=== PATIENT | female | born 1940 | race African-American/Black ===

== ENCOUNTER 2018-01-27 17:29 | Emergency (ER) | payer OTHER, MEDICAID ==
[~2018-01-27] VITALS: Ht 162.6 cm; Wt 60.0 kg
[~2018-01-27 17:29] MED LIST: AMLO5TAB88; PRAV20TA57
[2018-01-27] MEDS ORDERED: SODIUM CHLORIDE 0.9% 1,000 ML IV ONE (17:53)
[2018-01-27 18:13] LABS: BASOPHILS % 0.8 % (0.0-2.0); EOSINOPHILS % 3.6 % (0.0-5.0); HEMATOCRIT. 42.4 % (36.0-48.0); HEMOGLOBIN. 13.8 g/dL (12.0-16.0); LYMPHOCYTES % 39.8 % (20.0-50.0); MEAN CORPUSCULAR HEMOGLOBIN 28.4 pg (28.0-32.0); MEAN CORPUSCULAR VOLUME 87.4 fL (81.0-99.0); MEAN PLATELET VOLUME 9.2 fl (7.4-10.4); MONOCYTES % 13.9 % (2.0-8.0); NEUTROPHILS % 41.9 % (40.0-76.0); PLATELET 185 x1000/uL (130-400); RED BLOOD CELL COUNT 4.85 mill/uL (4.2-5.4); RED CELL DISTRIBUTION WIDTH 15.3 % (11.6-14.6)
[2018-01-27 18:16] LABS: CHLORIDE 104 mEq/L (98-107)
[2018-01-27 18:33] LABS: CLARITY URINE CLEAR (CLEAR); COLOR URINE YELLOW (YELLOW); KETONES URINE NEGATIVE (NEGATIVE); LEUKOCYTE ESTERASE URINE NEGATIVE (NEGATIVE); NITRITE URINE NEGATIVE (NEGATIVE); OCCULT BLOOD URINE NEGATIVE (NEGATIVE); PH URINE 6.5 (4.5-8.0); PROTEIN URINE NEGATIVE (NEGATIVE); SPECIFIC GRAVITY URINE 1.002 (1.005-1.030); UROBILINOGEN URINE 0.2 E.U./dL (0.2-1.0)
[2018-01-27 20:07] VITALS: BP 124/75
== END 2018-01-27 20:08 | disposition home or self-care (01) ==
LOC: ER 17:45
DX: I10 Essential (primary) hypertension (principal); R42 Dizziness and giddiness; E78.00 Pure hypercholesterolemia, unspecified; R94.31 Abnormal electrocardiogram [ECG] [EKG]
CPT/HCPCS: 36415; 70450; 71045; 80053; 81003; 85025; 93005; 96360; 99285; J7030

== ENCOUNTER 2018-02-28 04:02 | Emergency (ER) | payer OTHER, MEDICAID ==
[~2018-02-28] VITALS: Ht 167.6 cm; Wt 82.0 kg
[2018-02-28] MEDS ORDERED: SODIUM CHLORIDE 0.9% 1,000 ML IV ONE (06:21)
[2018-02-28] MEDS ORDERED: FAMOTIDINE 20MG/2ML VIAL IV ONE (06:30)
[2018-02-28 06:37] LABS: BASOPHILS % 0.7 % (0.0-2.0); EOSINOPHILS % 5.1 % (0.0-5.0); HEMATOCRIT. 43.9 % (36.0-48.0); HEMOGLOBIN. 14.4 g/dL (12.0-16.0); LYMPHOCYTES % 34.1 % (20.0-50.0); MEAN CORPUSCULAR HEMOGLOBIN 28.6 pg (28.0-32.0); MEAN CORPUSCULAR VOLUME 87.3 fL (81.0-99.0); MEAN PLATELET VOLUME 10.5 fl (7.4-10.4); MONOCYTES % 12.7 % (2.0-8.0); NEUTROPHILS % 47.4 % (40.0-76.0); PLATELET 178 x1000/uL (130-400); RED BLOOD CELL COUNT 5.03 mill/uL (4.2-5.4); RED CELL DISTRIBUTION WIDTH 15.1 % (11.6-14.6)
[2018-02-28 06:43] LABS: CHLORIDE 103 mEq/L (98-107)
[2018-02-28 08:30] LABS: CLARITY URINE CLEAR (CLEAR); COLOR URINE YELLOW (YELLOW); KETONES URINE NEGATIVE (NEGATIVE); LEUKOCYTE ESTERASE URINE NEGATIVE (NEGATIVE); NITRITE URINE NEGATIVE (NEGATIVE); OCCULT BLOOD URINE NEGATIVE (NEGATIVE); PH URINE 8.5 (4.5-8.0); PROTEIN URINE NEGATIVE (NEGATIVE); SPECIFIC GRAVITY URINE 1.006 (1.005-1.030); UROBILINOGEN URINE 0.2 E.U./dL (0.2-1.0)
[2018-02-28 11:07] VITALS: BP 142/76
== END 2018-02-28 11:39 | disposition home or self-care (01) ==
LOC: ER 06:00
DX: R10.13 Epigastric pain (principal); E11.9 Type 2 diabetes mellitus without complications; I10 Essential (primary) hypertension
CPT/HCPCS: 36415; 76700; 80053; 81003; 83690; 85025; 93005; 96374; 99285; J3490; J7030

== ENCOUNTER 2018-07-01 10:52 | Emergency (ER) | payer OTHER, MEDICAID ==
[~2018-07-01] VITALS: Ht 297.2 cm; Wt 82.0 kg
[2018-07-01 11:12] VITALS: BP 129/85
== END 2018-07-01 16:07 | disposition home or self-care (01) ==
LOC: ER 10:52
DX: M21.611 Bunion of right foot (principal); E11.9 Type 2 diabetes mellitus without complications; I11.9 Hypertensive heart disease without heart failure; Z79.899 Other long term (current) drug therapy
CPT/HCPCS: 99282

== ENCOUNTER 2018-10-24 22:08 | Emergency (ER) | payer OTHER, MEDICAID ==
[~2018-10-24] VITALS: Ht 165.1 cm; Wt 70.0 kg
[2018-10-24 23:03] LABS: CLARITY URINE CLEAR (CLEAR); COLOR URINE YELLOW (YELLOW); KETONES URINE NEGATIVE (NEGATIVE); LEUKOCYTE ESTERASE URINE NEGATIVE (NEGATIVE); NITRITE URINE NEGATIVE (NEGATIVE); OCCULT BLOOD URINE NEGATIVE (NEGATIVE); PH URINE 6.5 (4.5-8.0); PROTEIN URINE NEGATIVE (NEGATIVE); SPECIFIC GRAVITY URINE 1.001 (1.005-1.030); UROBILINOGEN URINE 0.2 E.U./dL (0.2-1.0)
[2018-10-24 23:05] LABS: BASOPHILS % 0.7 % (0.0-2.0); HEMATOCRIT. 42.1 % (36.0-48.0); HEMOGLOBIN. 13.8 g/dL (12.0-16.0); LYMPHOCYTES % 41.7 % (20.0-50.0); MEAN CORPUSCULAR HEMOGLOBIN 29.1 pg (28.0-32.0); MEAN CORPUSCULAR VOLUME 88.6 fL (81.0-99.0); MEAN PLATELET VOLUME 9.1 fl (7.4-10.4); MONOCYTES % 12.3 % (2.0-8.0); NEUTROPHILS % 42.3 % (40.0-76.0); PLATELET 166 x1000/uL (130-400); RED BLOOD CELL COUNT 4.76 mill/uL (4.2-5.4)
[2018-10-24 23:08] LABS: CHLORIDE 102 mEq/L (98-107)
[2018-10-24 23:10] LABS: INR 1.1; PROTHROMBIN TIME 11.1 sec (9.1-11.1)
[2018-10-25] MEDS ORDERED: ASPIRIN 81MG TABLET PO ONE (01:15)
[2018-10-25] MEDS ORDERED: FUROSEMIDE 20MG TABLET PO ONE (01:15)
[2018-10-25 03:06] VITALS: BP 133/89
== END 2018-10-25 03:30 | disposition short-term general hospital (02) ==
LOC: ER 22:08 → ENRESERV 10-25 08:00 → CANRESERV 10-25 08:00 → CANBEDREQ 10-25 09:09
DX: I11.0 Hypertensive heart disease with heart failure (principal); I50.9 Heart failure, unspecified; R55 Syncope and collapse; R42 Dizziness and giddiness; G40.909 Epilepsy, unspecified, not intractable, without status epilepticus; E11.9 Type 2 diabetes mellitus without complications; Z88.0 Allergy status to penicillin
CPT/HCPCS: 36415; 71045; 83880; 84484; 93005; 99285

== ENCOUNTER 2018-12-21 12:46 | Emergency (ER) | payer OTHER, MEDICAID ==
[~2018-12-21] VITALS: Ht 165.1 cm; Wt 60.0 kg
[2018-12-21] MEDS ORDERED: SODIUM CHLORIDE 0.9% 1,000 ML IV ONE (14:10)
[2018-12-21] MEDS ORDERED: ONDANSETRON HCL 4MG/2ML INJ IV STA (14:10)
[2018-12-21 14:33] LABS: BASOPHILS % 1.5 % (0.0-2.0); EOSINOPHILS % 2.2 % (0.0-5.0); HEMATOCRIT. 44.5 % (36.0-48.0); HEMOGLOBIN. 14.6 g/dL (12.0-16.0); LYMPHOCYTES % 43.7 % (20.0-50.0); MEAN CORPUSCULAR HEMOGLOBIN 28.8 pg (28.0-32.0); MEAN PLATELET VOLUME 9.4 fl (7.4-10.4); MONOCYTES % 9.5 % (2.0-8.0); NEUTROPHILS % 43.1 % (40.0-76.0); PLATELET 184 x1000/uL (130-400); RED BLOOD CELL COUNT 5.06 mill/uL (4.2-5.4); RED CELL DISTRIBUTION WIDTH 14.9 % (11.6-14.6)
[2018-12-21 14:36] LABS: CHLORIDE 103 mEq/L (98-107)
[2018-12-21 16:14] LABS: CLARITY URINE CLEAR (CLEAR); COLOR URINE YELLOW (YELLOW); KETONES URINE NEGATIVE (NEGATIVE); LEUKOCYTE ESTERASE URINE TRACE (NEGATIVE); NITRITE URINE NEGATIVE (NEGATIVE); OCCULT BLOOD URINE NEGATIVE (NEGATIVE); PROTEIN URINE NEGATIVE (NEGATIVE); SPECIFIC GRAVITY URINE 1.002 (1.005-1.030); UROBILINOGEN URINE 0.2 E.U./dL (0.2-1.0)
[2018-12-21 17:40] VITALS: BP 148/73
== END 2018-12-21 18:33 | disposition home or self-care (01) ==
LOC: ER 12:58
DX: R55 Syncope and collapse (principal); R53.1 Weakness; E11.9 Type 2 diabetes mellitus without complications; E78.00 Pure hypercholesterolemia, unspecified; I10 Essential (primary) hypertension; Z88.0 Allergy status to penicillin
CPT/HCPCS: 36415; 71045; 80053; 81003; 82962; 83605; 83880; 84484; 85025; 93005; 96361; 96374; 99284; J2405; J7030

== ENCOUNTER 2019-08-11 14:30 | Emergency (ER) | payer OTHER, MEDICAID ==
[~2019-08-11] VITALS: Ht 170.2 cm; Wt 65.0 kg
[2019-08-11 14:52] VITALS: BP 129/61
[2019-08-11] MEDS ORDERED: ACETAMINOPHEN 325MG TABLET PO ONE (15:45)
== END 2019-08-11 16:03 | disposition home or self-care (01) ==
LOC: ER 14:30
DX: M79.671 Pain in right foot (principal); E11.9 Type 2 diabetes mellitus without complications; E78.00 Pure hypercholesterolemia, unspecified; I10 Essential (primary) hypertension; Z88.0 Allergy status to penicillin
CPT/HCPCS: 99283

== ENCOUNTER 2020-11-18 10:31 | Inpatient (IN) | payer OTHER, MEDICAID ==
[~2020-11-18] VITALS: Ht 167.6 cm; Wt 72.6 kg
[~2020-11-18 10:31] MED LIST changes: -AMLO5TAB88; +AMLO5TAB88 PO; -PRAV20TA57; +PRAV20TA57 PO
[2020-11-18] MEDS ORDERED: SODIUM CHLORIDE 0.9% 500 ML IV ONE (11:15)
[2020-11-18 11:42] LABS: BASOPHILS % 0.8 % (0.0-2.0); EOSINOPHILS % 4.3 % (0.0-5.0); HEMATOCRIT. 46.5 % (36.0-48.0); HEMOGLOBIN. 14.9 g/dL (12.0-16.0); LYMPHOCYTES % 41.2 % (20.0-50.0); MEAN CORPUSCULAR HEMOGLOBIN 29.2 pg (28.0-32.0); MEAN CORPUSCULAR VOLUME 91.4 fL (81.0-99.0); MONOCYTES % 12.8 % (2.0-8.0); NEUTROPHILS % 40.9 % (40.0-76.0); PLATELET 201 x1000/uL (130-400); RED BLOOD CELL COUNT 5.09 mill/uL (4.2-5.4); RED CELL DISTRIBUTION WIDTH 16.7 % (11.6-14.6)
[2020-11-18 13:05] LABS: CHLORIDE 108 mEq/L (98-107)
[2020-11-18 13:13] LABS: C REACTIVE PROTEIN QUANT 2.6 mg/L (0.0-3.0)
[2020-11-18] MEDS ORDERED: CEFTRIAXONE 1 G PREMIX 50 ML IV NR (15:00)
[2020-11-18 15:01] LABS: INR 1.1; PROTHROMBIN TIME 11.5 sec (9.6-11.0)
[2020-11-18 21:00] VITALS: BP 132/88
[2020-11-18] MEDS ORDERED: FURO-152 PO (21:58)
[2020-11-18] MEDS ORDERED: HYDROCODONE/ACETAMINOPHEN 5/325MG TABLET PO PRN (23:00)
[2020-11-18] MEDS ORDERED: ACETAMINOPHEN 325MG TABLET PO PRN (23:00)
[2020-11-18] MEDS ORDERED: TEMAZEPAM 15MG CAPSULE PO PRN (23:00)
[2020-11-18] MEDS ORDERED: ONDANSETRON HCL 4MG/2ML INJ IV PRN (23:00)
[2020-11-19] VITALS: BP 110/68
[2020-11-19 04:00] VITALS: BP 136/68
[2020-11-19 06:21] LABS: CHLORIDE 110 mEq/L (98-107)
[2020-11-19 06:29] LABS: HDL CHOLESTEROL 75 mg/dL (40-59)
[2020-11-19 06:30] LABS: BASOPHILS % 0.7 % (0.0-2.0); HEMATOCRIT. 44.5 % (36.0-48.0); HEMOGLOBIN. 14.2 g/dL (12.0-16.0); LDL CHOLESTEROL 105 mg/dL (5-100); LYMPHOCYTES % 38.8 % (20.0-50.0); MEAN CORPUSCULAR HEMOGLOBIN 29.1 pg (28.0-32.0); MEAN CORPUSCULAR VOLUME 91.1 fL (81.0-99.0); MEAN PLATELET VOLUME 10.4 fl (7.4-10.4); MONOCYTES % 14.6 % (2.0-8.0); NEUTROPHILS % 40.9 % (40.0-76.0); PLATELET 140 x1000/uL (130-400); RED BLOOD CELL COUNT 4.89 mill/uL (4.2-5.4); RED CELL DISTRIBUTION WIDTH 15.1 % (11.6-14.6)
[2020-11-19 06:42] LABS: T4 FREE 1.21 ng/dL (0.76-1.46)
[2020-11-19 08:00] VITALS: BP 124/70
[2020-11-19] MEDS: FUROSEMIDE 40MG/4ML VIAL IVP SCH (09:38)
[2020-11-19] MEDS: CARVEDILOL 3.125 MG TABLET PO SCH ×2 (09:39→21:36)
[2020-11-19] MEDS: ENOXAPARIN 40MG/0.4ML SYR SUBCUT SCH (09:40)
[2020-11-19 12:00] VITALS: BP 122/85
[2020-11-19] MEDS: ASPIRIN 81MG TABLET PO SCH (13:30)
[2020-11-19] MEDS ORDERED: IPRATROPIUM/ALBUTEROL 0.5-3(2.5)MG/3ML NEB HHN PRN (13:30)
[2020-11-19] MEDS ORDERED: DIPHENHYDRAMINE 50MG/ML VIAL IV PRN (13:30)
[2020-11-19] MEDS ORDERED: HYDRALAZINE 20MG/ML VIAL IV PRN (13:30)
[2020-11-19] MEDS ORDERED: BISACODYL 10MG SUPP PR PRN (13:30)
[2020-11-19 16:00] VITALS: BP 124/65
[2020-11-19] MEDS ORDERED: CEFTRIAXONE 1 G PREMIX 50 ML IV SCH (17:00)
[2020-11-19 18:17] LABS: CREATINE KINASE 187 IU/L (26-192)
[2020-11-19 18:18] LABS: CREATINE KINASE MB FRACTION 1.5 ng/mL (0.5-3.6)
[2020-11-19] MEDS: CEFTRIAXONE 1,000 MG in DEXTROSE 5% WATER 50 ML IV SCH (18:54)
[2020-11-19 20:00] VITALS: BP 124/52
[2020-11-19] MEDS ORDERED: FAMOTIDINE 20MG TABLET PO SCH (21:00)
[2020-11-20] VITALS: BP 116/46
[2020-11-20 04:00] VITALS: BP 114/68
[2020-11-20 06:33] LABS: CHLORIDE 107 mEq/L (98-107)
[2020-11-20 06:37] LABS: HEMATOCRIT. 46.2 % (36.0-48.0); HEMOGLOBIN. 14.8 g/dL (12.0-16.0); MEAN CORPUSCULAR VOLUME 90.2 fL (81.0-99.0); MEAN PLATELET VOLUME 10.3 fl (7.4-10.4); PLATELET 147 x1000/uL (130-400); RED BLOOD CELL COUNT 5.12 mill/uL (4.2-5.4); RED CELL DISTRIBUTION WIDTH 15.1 % (11.6-14.6)
[2020-11-20 08:00] VITALS: BP 144/75
[2020-11-20] MEDS: ENOXAPARIN 40MG/0.4ML SYR SUBCUT SCH (09:00)
[2020-11-20] MEDS: FUROSEMIDE 40MG/4ML VIAL IVP SCH ×3 (09:00→17:00)
[2020-11-20] MEDS: CARVEDILOL 3.125 MG TABLET PO SCH (09:14)
[2020-11-20] MEDS: ASPIRIN 81MG TABLET PO SCH (09:15)
[2020-11-20 12:00] VITALS: BP 118/66
[2020-11-20] MEDS ORDERED: LOSARTAN POTASSIUM 25 MG TABLET PO SCH (12:00)
[2020-11-20 12:16] LABS: BG CARBOXYHEMOGLOBIN 0.5 % (0.5-1.5); BG DEOXYHEMOGLOBIN 2.1 % (0.0-5.0); BG HCO3 ACT 24.2 mmol/L (22.0-26.0); BG METHEMOGLOBIN 0.4 % (0.0-1.5); BG OXYGEN SATURATION 97.9 % (92.0-98.5); BG PCO2 34.6 mmHg (35.0-45.0); BG PH 7.463 (7.350-7.450); BG PO2 97.3 mmHg (75.0-100.0); BG SAMPLE SITE RIGHT RADIAL; BG TOTAL HEMOGLOBIN 15.8 g/dL (12.0-18.0); BG VENT MODE ROOM AIR
[2020-11-20 15:09] LABS: PLATELET ESTIMATE NORMAL
[2020-11-20 16:00] VITALS: BP 108/72
[2020-11-20] MEDS: CEFTRIAXONE 1,000 MG in DEXTROSE 5% WATER 50 ML IV SCH (18:00)
[2020-11-21] MEDS ORDERED: DEXT 5%/0.45% NACL 1000ML 1,000 ML IV SCH
[2020-11-21] MEDS ORDERED: CARVEDILOL 6.25 MG TABLET PO SCH (09:00)
== END 2020-11-20 19:50 | disposition left against medical advice (07) | DRG 74 ==
LOC: EDBD 10:31 → ER 10:31 → 6WST 17:52 → ENRESERV 19:57
PROVIDERS: ADMIT Internal Medicine; ATTEND Internal Medicine
DX: G57.91 Unspecified mononeuropathy of right lower limb (principal); L03.115 Cellulitis of right lower limb; I42.0 Dilated cardiomyopathy; I50.20 Unspecified systolic (congestive) heart failure; I11.0 Hypertensive heart disease with heart failure; E78.5 Hyperlipidemia, unspecified; E87.5 Hyperkalemia; M85.80 Other specified disorders of bone density and structure, unspecified site; D72.819 Decreased white blood cell count, unspecified; E78.00 Pure hypercholesterolemia, unspecified; I49.3 Ventricular premature depolarization; I70.0 Atherosclerosis of aorta; M79.671 Pain in right foot; M79.89 Other specified soft tissue disorders; R00.8 Other abnormalities of heart beat; R06.02 Shortness of breath; N28.9 Disorder of kidney and ureter, unspecified; Z53.21 Procedure and treatment not carried out due to patient leaving prior to being seen by health care provider; M79.661 Pain in right lower leg; Z91.14 Patient's other noncompliance with medication regimen; Z79.899 Other long term (current) drug therapy; Z88.8 Allergy status to other drugs, medicaments and biological substances
CPT/HCPCS: 36415; 36600; 71045; 73610; 73700; 80048; 80053; 80061; 82375; 82550; 82553; 82805; 83605; 83880; 84439; 84443; 84484; 85025; 86140; 93005; 93306; 93970; 99285; J0696; J1650; J1940; J7040; J7060

== ENCOUNTER 2021-03-27 10:46 | Inpatient (IN) | payer MEDICARE, MEDICAID ==
[~2021-03-27] VITALS: Ht 165.1 cm; Wt 68.9 kg
[~2021-03-27 10:46] MED LIST changes: +FURO-152 PO
[2021-03-27] MEDS ORDERED: HYDROCODONE/ACETAMINOPHEN 5/325MG TABLET PO ONE (11:30)
[2021-03-27 12:24] LABS: BASOPHILS % 1.3 % (0.0-2.0); EOSINOPHILS % 2.4 % (0.0-5.0); HEMATOCRIT. 41.1 % (36.0-48.0); HEMOGLOBIN. 13.4 g/dL (12.0-16.0); LYMPHOCYTES % 37.7 % (20.0-50.0); MEAN CORPUSCULAR VOLUME 89.2 fL (81.0-99.0); MEAN PLATELET VOLUME 9.3 fl (7.4-10.4); MONOCYTES % 14.6 % (2.0-8.0); PLATELET 176 x1000/uL (130-400); RED BLOOD CELL COUNT 4.61 mill/uL (4.2-5.4)
[2021-03-27 12:35] LABS: CHLORIDE 109 mEq/L (98-107)
[2021-03-27 12:36] LABS: INR 1.1; PARTIAL THROMBOPLASTIN TIME 28.8 sec (23.4-31.0); PROTHROMBIN TIME 11.5 sec (9.6-11.0)
[2021-03-27] MEDS ORDERED: FUROSEMIDE 40MG/4ML VIAL IV ONE (13:30)
[2021-03-27] MEDS ORDERED: ASPIRIN 81MG TABLET PO ONE (13:30)
[2021-03-27] MEDS ORDERED: NITROGLYCERIN OINT 1GM/INCH UDPKT TD ONE (13:30)
[2021-03-27] MEDS ORDERED: MORPHINE SULFATE 2 MG/ML CPJ (NOT FOR IM USE) IV PRN (23:15)
[2021-03-27] MEDS ORDERED: IPRATROPIUM/ALBUTEROL 0.5-3(2.5)MG/3ML NEB HHN PRN (23:15)
[2021-03-27] MEDS ORDERED: HYDROCODONE/ACETAMINOPHEN 5/325MG TABLET PO PRN (23:15)
[2021-03-27] MEDS ORDERED: GUAIFENESIN 200MG/10ML SUGAR FREE UDC PO PRN (23:15)
[2021-03-27] MEDS ORDERED: DOCUSATE SODIUM 100MG CAPSULE PO PRN (23:15)
[2021-03-27] MEDS ORDERED: LORAZEPAM 2MG/ML CPJ IV PRN (23:15)
[2021-03-27] MEDS ORDERED: DIPHENHYDRAMINE 50MG/ML VIAL IV PRN (23:15)
[2021-03-27] MEDS ORDERED: HYDRALAZINE 20MG/ML VIAL IV PRN (23:15)
[2021-03-27] MEDS ORDERED: ACETAMINOPHEN 325MG TABLET PO PRN (23:15)
[2021-03-27] MEDS ORDERED: MAGNESIUM/ALUMINUM HYDROXIDE/SIMETHICONE 30ML UDC PO PRN (23:15)
[2021-03-27] MEDS ORDERED: ONDANSETRON HCL 4MG/2ML INJ IV PRN (23:15)
[2021-03-27] MEDS ORDERED: ENOXAPARIN 40MG/0.4ML SYR SUBCUT SCH (23:15)
[2021-03-27] MEDS ORDERED: CLONIDINE 0.1MG TABLET PO PRN (23:15)
[2021-03-27] MEDS: ENOXAPARIN 30MG/0.3ML SYR SUBCUT SCH (23:46)
[2021-03-28 05:18] LABS: HEMATOCRIT. 43.2 % (36.0-48.0); HEMOGLOBIN. 14.2 g/dL (12.0-16.0); MEAN CORPUSCULAR HEMOGLOBIN 29.1 pg (28.0-32.0); MEAN CORPUSCULAR VOLUME 88.5 fL (81.0-99.0); MEAN PLATELET VOLUME 9.1 fl (7.4-10.4); PLATELET 180 x1000/uL (130-400); RED BLOOD CELL COUNT 4.89 mill/uL (4.2-5.4); RED CELL DISTRIBUTION WIDTH 15.2 % (11.6-14.6)
[2021-03-28 05:24] LABS: CHLORIDE 105 mEq/L (98-107)
[2021-03-28 05:34] LABS: CREATINE KINASE 139 IU/L (26-192)
[2021-03-28 05:36] LABS: CREATINE KINASE MB FRACTION 1.3 ng/mL (0.5-3.6)
[2021-03-28] MEDS: SODIUM CHLORIDE 0.9% INJ 3ML FLUSH IVF SCH ×3 (06:19→22:34)
[2021-03-28 08:40] VITALS: BP 136/74
[2021-03-28 09:00] VITALS: BP 136/74
[2021-03-28] MEDS: LOSARTAN POTASSIUM 25 MG TABLET PO SCH (09:46)
[2021-03-28] MEDS: FUROSEMIDE 40MG/4ML VIAL IV SCH (09:47)
[2021-03-28 10:00] VITALS: BP 121/73
[2021-03-28 11:09] LABS: T4 FREE 1.08 ng/dL (0.76-1.46)
[2021-03-28] MEDS: ENOXAPARIN 30MG/0.3ML SYR SUBCUT SCH ×2 (12:58→22:36)
[2021-03-28 16:00] VITALS: BP 117/62
[2021-03-28 16:00] LABS: CREATINE KINASE 179 IU/L (26-192)
[2021-03-28 16:01] LABS: CREATINE KINASE MB FRACTION 1.6 ng/mL (0.5-3.6)
[2021-03-28 16:19] LABS: PLATELET ESTIMATE NORMAL
[2021-03-28 20:34] VITALS: BP 105/39
[2021-03-29] VITALS (7 sets, daily range): BP systolic 96–139; BP diastolic 53–74
[2021-03-29] MEDS: SODIUM CHLORIDE 0.9% INJ 3ML FLUSH IVF SCH ×3 (06:00→22:00)
[2021-03-29] MEDS: FUROSEMIDE 40MG/4ML VIAL IV SCH (09:00)
[2021-03-29] MEDS: LOSARTAN POTASSIUM 25 MG TABLET PO SCH (09:00)
[2021-03-29] MEDS: CARVEDILOL 3.125 MG TABLET PO SCH (10:00)
[2021-03-29] MEDS: ENOXAPARIN 30MG/0.3ML SYR SUBCUT SCH ×2 (11:30→22:36)
[2021-03-30 04:00] VITALS: BP 117/90
[2021-03-30] MEDS: SODIUM CHLORIDE 0.9% INJ 3ML FLUSH IVF SCH ×3 (05:50→22:41)
[2021-03-30 07:52] LABS: HEMATOCRIT. 46.2 % (36.0-48.0); HEMOGLOBIN. 14.8 g/dL (12.0-16.0); MEAN CORPUSCULAR HEMOGLOBIN 28.8 pg (28.0-32.0); MEAN CORPUSCULAR VOLUME 89.7 fL (81.0-99.0); MEAN PLATELET VOLUME 9.9 fl (7.4-10.4); PLATELET 182 x1000/uL (130-400); RED BLOOD CELL COUNT 5.15 mill/uL (4.2-5.4); RED CELL DISTRIBUTION WIDTH 15.4 % (11.6-14.6)
[2021-03-30 08:00] VITALS: BP 122/61
[2021-03-30] MEDS: LOSARTAN POTASSIUM 25 MG TABLET PO SCH (10:37)
[2021-03-30] MEDS: FUROSEMIDE 40MG/4ML VIAL IV SCH (10:37)
[2021-03-30] MEDS: CARVEDILOL 3.125 MG TABLET PO SCH (10:37)
[2021-03-30] MEDS: ENOXAPARIN 30MG/0.3ML SYR SUBCUT SCH ×2 (11:30→22:42)
[2021-03-30 12:00] VITALS: BP 147/54
[2021-03-30 13:17] LABS: PLATELET ESTIMATE NORMAL
[2021-03-30 16:00] VITALS: BP 126/74
[2021-03-30 20:00] VITALS: BP 103/53
[2021-03-31] VITALS: BP 128/67
[2021-03-31 03:34] VITALS: BP 143/74
[2021-03-31] MEDS: SODIUM CHLORIDE 0.9% INJ 3ML FLUSH IVF SCH (05:31)
[2021-03-31 08:00] VITALS: BP 139/64
[2021-03-31] MEDS: LOSARTAN POTASSIUM 25 MG TABLET PO SCH (08:59)
[2021-03-31] MEDS: CARVEDILOL 3.125 MG TABLET PO SCH (08:59)
[2021-03-31] MEDS: FUROSEMIDE 40MG/4ML VIAL IV SCH (08:59)
[2021-03-31] MEDS ORDERED: ENOXAPARIN 40MG/0.4ML SYR SUBCUT SCH (09:00)
[2021-03-31 12:00] VITALS: BP 138/70
[2021-03-31] MEDS: ENOXAPARIN 30MG/0.3ML SYR SUBCUT SCH (12:26)
[2021-04-01] MEDS ORDERED: ENOXAPARIN 40MG/0.4ML SYR SUBCUT SCH (09:00)
[2021-04-20] MEDS ORDERED: QUET25TA34 PO (18:37)
== END 2021-03-31 16:13 | disposition home or self-care (01) | DRG 293 ==
LOC: ER 10:46 → MICUSO 17:04 → 8WST 03-28 07:28
PROVIDERS: ADMIT Internal Medicine; ATTEND Internal Medicine
DX: I11.0 Hypertensive heart disease with heart failure (principal); I50.33 Acute on chronic diastolic (congestive) heart failure; I42.8 Other cardiomyopathies; M79.604 Pain in right leg; E78.5 Hyperlipidemia, unspecified; Z20.822 Contact with and (suspected) exposure to COVID-19; M47.812 Spondylosis without myelopathy or radiculopathy, cervical region; M13.0 Polyarthritis, unspecified; I87.2 Venous insufficiency (chronic) (peripheral); M48.02 Spinal stenosis, cervical region; E78.00 Pure hypercholesterolemia, unspecified; Z79.899 Other long term (current) drug therapy; Z88.1 Allergy status to other antibiotic agents
CPT/HCPCS: 36415; 71045; 72141; 73560; 73600; 80048; 80053; 80061; 82550; 82553; 83036; 83880; 84439; 84443; 84484; 85025; 85379; 87426; 93005; 93306; 93923; 93970; 97162; 99285; J1650; J1940

== ENCOUNTER 2021-04-09 12:29 | Emergency (ER) | payer MEDICARE, MEDICAID ==
[~2021-04-09] VITALS: Ht 167.6 cm; Wt 81.0 kg
[2021-04-09 12:39] VITALS: BP 117/63
[2021-04-20] MEDS ORDERED: QUET25TA34 PO (18:37)
== END 2021-04-09 15:16 | disposition left against medical advice (07) ==
LOC: ER 12:29
DX: R44.3 Hallucinations, unspecified (principal); I11.0 Hypertensive heart disease with heart failure; I50.9 Heart failure, unspecified; E78.00 Pure hypercholesterolemia, unspecified; Z88.0 Allergy status to penicillin
CPT/HCPCS: 99281

== ENCOUNTER 2021-04-20 10:02 | Inpatient (IN) | payer MEDICARE, MEDICAID ==
[~2021-04-20] VITALS: Ht 167.6 cm; Wt 66.3 kg
[2021-04-20 10:49] LABS: BASOPHILS % 2.5 % (0.0-2.0); EOSINOPHILS % 2.7 % (0.0-5.0); HEMATOCRIT. 40.4 % (36.0-48.0); HEMOGLOBIN. 13.5 g/dL (12.0-16.0); LYMPHOCYTES % 34.5 % (20.0-50.0); MEAN CORPUSCULAR HEMOGLOBIN 29.2 pg (28.0-32.0); MEAN CORPUSCULAR VOLUME 87.3 fL (81.0-99.0); MONOCYTES % 14.5 % (2.0-8.0); NEUTROPHILS % 45.8 % (40.0-76.0); PLATELET 157 x1000/uL (130-400); RED BLOOD CELL COUNT 4.63 mill/uL (4.2-5.4); RED CELL DISTRIBUTION WIDTH 14.8 % (11.6-14.6)
[2021-04-20 10:57] LABS: CHLORIDE 110 mEq/L (98-107)
[2021-04-20 10:59] LABS: D-DIMER 1.88 mg/L FEU (<0.50); INR 1.1; PROTHROMBIN TIME 11.6 sec (9.6-11.0)
[2021-04-20] MEDS ORDERED: IOHEXOL-350 100 ML BOTTLE ONE (12:37)
[2021-04-20] MEDS ORDERED: ACETAMINOPHEN 325MG TABLET PO PRN ×2 (14:00)
[2021-04-20] MEDS ORDERED: MAGNESIUM/ALUMINUM HYDROXIDE/SIMETHICONE 30ML UDC PO PRN (14:00)
[2021-04-20] MEDS ORDERED: DOCUSATE SODIUM 100MG CAPSULE PO PRN (14:00)
[2021-04-20] MEDS ORDERED: CLONIDINE 0.1MG TABLET PO PRN (14:00)
[2021-04-20] MEDS ORDERED: IPRATROPIUM/ALBUTEROL 0.5-3(2.5)MG/3ML NEB NEB PRN (14:00)
[2021-04-20] MEDS ORDERED: ONDANSETRON HCL 4MG/2ML INJ IV PRN (14:00)
[2021-04-20] MEDS ORDERED: NITROGLYCERIN 0.4MG TABLET SL SL PRN (14:00)
[2021-04-20] MEDS ORDERED: GUAIFENESIN 200MG/10ML SUGAR FREE UDC PO PRN (14:00)
[2021-04-20 14:43] LABS: FOLIC ACID (FOLATE) SERUM > 20.00 ng/mL (>5.38)
[2021-04-20 14:45] LABS: FERRITIN 197 ng/mL (10-291)
[2021-04-20 14:53] LABS: VITAMIN B12 SERUM 700 pg/mL (211-911)
[2021-04-20] MEDS ORDERED: ENOXAPARIN 40MG/0.4ML SYR SUBCUT SCH (15:00)
[2021-04-20 15:22] VITALS: BP 140/78
[2021-04-20 16:00] VITALS: BP 140/28
[2021-04-20] MEDS: CARVEDILOL 3.125 MG TABLET PO SCH (18:35)
[2021-04-20] MEDS ORDERED: QUET25TA36 PO (18:37)
[2021-04-20] MEDS ORDERED: POTASSIUM CHLORIDE 20MEQ TABLET SR PO NR (18:45)
[2021-04-20] MEDS ORDERED: *PATIENT'S OWN MEDICATION STORAGE XX SCH (19:00)
[2021-04-20 20:00] VITALS: BP 152/86
[2021-04-20 20:47] LABS: CREATINE KINASE 345 IU/L (26-192)
[2021-04-20 20:48] LABS: CREATINE KINASE MB FRACTION 4.4 ng/mL (0.5-3.6)
[2021-04-20] MEDS ORDERED: ZOLPIDEM TARTRATE 5MG TABLET PO PRN (21:00)
[2021-04-20] MEDS ORDERED: FAMOTIDINE 20MG TABLET PO SCH (21:00)
[2021-04-20] MEDS ORDERED: POTASSIUM PHOS,M-BASIC-D-BASIC 20 MMOL in DEXT 5% WATER 243.3333 ML IV NR (21:00)
[2021-04-20] MEDS: ASCORBIC ACID 500 MG TABLET PO SCH (21:40)
[2021-04-20] MEDS: FUROSEMIDE 20MG/2ML VIAL IVP SCH (21:40)
[2021-04-20] MEDS: LISINOPRIL 2.5MG TABLET PO SCH (21:41)
[2021-04-20] MEDS: SPIRONOLACTONE 25MG TABLET PO SCH (23:25)
[2021-04-21] VITALS: BP 130/75
[2021-04-21 04:00] VITALS: BP 113/67
[2021-04-21] MEDS: CARVEDILOL 3.125 MG TABLET PO SCH (05:01)
[2021-04-21 08:27] LABS: BASOPHILS % 1.5 % (0.0-2.0); HEMOGLOBIN. 16.5 g/dL (12.0-16.0); LYMPHOCYTES % 34.8 % (20.0-50.0); MEAN CORPUSCULAR VOLUME 88.1 fL (81.0-99.0); MEAN PLATELET VOLUME 9.5 fl (7.4-10.4); MONOCYTES % 12.3 % (2.0-8.0); NEUTROPHILS % 47.4 % (40.0-76.0); PLATELET 200 x1000/uL (130-400); RED BLOOD CELL COUNT 5.68 mill/uL (4.2-5.4); RED CELL DISTRIBUTION WIDTH 15.1 % (11.6-14.6)
[2021-04-21 08:32] LABS: CHLORIDE 103 mEq/L (98-107)
[2021-04-21 08:40] LABS: PHOSPHORUS 3.5 mg/dL (2.5-4.9)
[2021-04-21] MEDS ORDERED: ZINC SULFATE 220 MG ( 50 ) CAPSULE PO SCH (09:00)
[2021-04-21] MEDS ORDERED: ASPIRIN 325MG EC TABLET PO SCH (09:00)
[2021-04-21] MEDS: LISINOPRIL 2.5MG TABLET PO SCH (09:00)
[2021-04-21] MEDS ORDERED: CHOLECALCIFEROL (D3) 1000 UNIT TABLET PO SCH (09:00)
[2021-04-21] MEDS: FUROSEMIDE 20MG/2ML VIAL IVP SCH (09:49)
[2021-04-21] MEDS: SPIRONOLACTONE 25MG TABLET PO SCH (09:51)
[2021-04-21] MEDS: ASCORBIC ACID 500 MG TABLET PO SCH (09:51)
[2021-04-21 10:32] VITALS: BP 107/69
== END 2021-04-21 12:50 | disposition home or self-care (01) | DRG 205 ==
LOC: ER 10:43 → 7EST 12:12 → ENRESERV 13:45 → SUPCPDRO 13:52 → 7EST 04-21 03:10
PROVIDERS: ADMIT Internal Medicine; ATTEND Internal Medicine
DX: M94.0 Chondrocostal junction syndrome [Tietze] (principal); I50.43 Acute on chronic combined systolic (congestive) and diastolic (congestive) heart failure; C34.90 Malignant neoplasm of unspecified part of unspecified bronchus or lung; I42.9 Cardiomyopathy, unspecified; I11.0 Hypertensive heart disease with heart failure; E78.00 Pure hypercholesterolemia, unspecified; Z88.1 Allergy status to other antibiotic agents; Z79.899 Other long term (current) drug therapy
CPT/HCPCS: 36415; 71045; 71275; 80053; 80061; 82550; 82553; 82607; 82728; 82746; 83540; 83550; 83735; 83880; 84100; 84484; 85025; 85379; 93005; 93970; 99285; J1650; J1940; J3490; J7040; J7060; Q9967

== ENCOUNTER 2021-10-14 14:54 | Emergency (ER) | payer MEDICARE, MEDICAID ==
[~2021-10-14] VITALS: Ht 167.6 cm; Wt 75.0 kg
[~2021-10-14 14:54] MED LIST changes: +QUET25TA36 PO
[2021-10-14 14:59] VITALS: BP 128/48
[2021-10-14] MEDS ORDERED: TRAM50TA94 MT (18:25)
[2021-10-14] MEDS ORDERED: KEFLL21 MT (18:25)
== END 2021-10-14 18:56 | disposition home or self-care (01) ==
LOC: ER 14:54
DX: M79.671 Pain in right foot (principal); L84 Corns and callosities; I11.0 Hypertensive heart disease with heart failure; I50.9 Heart failure, unspecified; E78.00 Pure hypercholesterolemia, unspecified; Z88.0 Allergy status to penicillin
CPT/HCPCS: 73620; 99283

== ENCOUNTER 2025-02-21 08:42 | Emergency (ER) | payer MEDICARE, MEDICAID ==
[~2025-02-21] VITALS: Ht 165.1 cm; Wt 60.0 kg
[~2025-02-21 08:42] MED LIST changes: +ATOR20TA65 PO; +CEPH500C2 PO; -FURO-152 PO; +FURO20TA4 PO; +LOSA25TA26 PO; +SULF1TAB48 MT; +TRAM50TA94 MT
[2025-02-21 08:45] VITALS: O2SAT 100
[2025-02-21] MEDS ORDERED: TRIMO LEFTEYE (09:46)
[2025-02-21] MEDS ORDERED: CEFP200T13 MT (09:49)
[2025-02-21] MEDS ORDERED: SULF1TAB48 MT (09:49)
[2025-02-21 10:48] VITALS: BP 139/69; PULSE 60; RESP 12; TEMP 36.4; O2SAT 97
== END 2025-02-21 11:21 | disposition home or self-care (01) ==
LOC: ER 09:01
DX: H10.89 Other conjunctivitis (principal); L03.213 Periorbital cellulitis; F03.90 Unspecified dementia, unspecified severity, without behavioral disturbance, psychotic disturbance, mood disturbance, and anxiety; E78.00 Pure hypercholesterolemia, unspecified; I11.0 Hypertensive heart disease with heart failure; I50.9 Heart failure, unspecified; Z79.899 Other long term (current) drug therapy; Z88.0 Allergy status to penicillin
CPT/HCPCS: 99283